=== PATIENT | female | born 1945 ===

== ENCOUNTER 2017-10-14 22:41 | Emergency (ER) | payer MEDICARE ==
[2017-10-14 22:41] VITALS: BMI 25.9
[2017-10-14 22:59] VITALS: BP 144/78; PULSE 90; RESP 16; TEMP 98.3; O2SAT 99
--- NOTE | 2017-10-14 23:46 | ED PDOC ---
HPI: General Adult Time Seen by Provider: 10/14/17 23:05 Chief Complaint (Nursing): Upper Extremity Problem/Injury History Per: Patient Additional Complaint(s): Pt. states earlier today she slipped and fell injuring her L wrist. States >10 years ago she had a pin placed on the R wrist due to a fracture. Denies numbness , tingling, other injury, head injury. Past Medical History Reviewed: Historical Data, Nursing Documentation, Vital Signs Vital Signs: Last Vital Signs Temp 98.3 F 10/14/17 22:58 Pulse 90 10/14/17 22:58 Resp 16 10/14/17 22:58 BP 144/78 10/14/17 22:58 Pulse Ox 99 10/14/17 23:49 - Medical History PMH: Fractures (LEFT WRIST), HTN, Hypercholesterolemia, Osteoporosis Denies: Chronic Kidney Disease - Family History Family History: States: No Known Family Hx - Home Medications Home Medications: Ambulatory Orders Medication Instructions Recorded Alendronate Sodium [Fosamax] 1 tab PO QWK 05/25/16 Glimepiride [Amaryl] 1 tab PO DAILY 05/25/16 Losartan/Hydrochlorothiazide 1 tab PO DAILY 05/25/16 [Hyzaar 100-25 Tablet] Metformin HCl 1 tab PO DAILY 05/25/16 Simvastatin 1 tab PO HS 05/25/16 - Allergies Allergies/Adverse Reactions: Allergies Allergy/AdvReac Type Severity Reaction Status Date / Time No Known Allergies Allergy Verified 05/25/16 10:17 Review of Systems ROS Statement: Except As Marked, All Systems Reviewed And Found Negative Physical Exam - Physical Exam Appears: Positive for: Well, Non-toxic, No Acute Distress Skin: Positive for: Normal Color, Warm. Negative for: Rash Pulses-Radial (L): 2+ Pulses-Radial (R): 2+ Extremity: Positive for: Capillary Refill (< 2 seconds of L hand), Other (L wrist with moderate swelling and tenderness on dorsal wrist; ) Neurologic/Psych: Positive for: Alert, Oriented - ECG O2 Sat by Pulse Oximetry: 99 - Progress ED Course And Treament: Tylenol PO ordered. R wrist x-ray: minimally displaced distal radius fx; pin in place in carpal bone Wrist immobilized in orthoglass reverse sugar tong splint applied by PA. Post neuro exam WNL; cap refill < 2 seconds. Advised to f/u michael Blair impression printer. Also told to f/u with Dr. Ashley ( PMD) if unable to f/u with ortho. Disposition - Clinical Impression Clinical Impression: Fracture of wrist - Patient ED Disposition Is Patient to be Admitted: No - Disposition Referrals: Bishop Hall MD [Medical Doctor] - [facility] [Outside] Disposition: Routine/Home Disposition Time: 00:10 Condition: STABLE Additional Instructions: Take Tylenol at home for pain. Follow up with ortho for further evaluation. Instructions: Wrist Fracture in Adults (ED), Splint Care (ED) Forms: [employer] (Sammarinese) Print Language: UGANDAN
--- NOTE | 2017-10-15 09:18 | RAD ---
PROCEDURE: Left Wrist Radiographs. HISTORY: trauma COMPARISON: None. FINDINGS: BONES: Patient status post open reduction internal fixation of navicular fracture which grossly appears healed at this time. There is no interval callus fracture of the distal left radius which is impacted with mild dorsal distraction and angulation. Ulna appears intact. No subluxation or dislocation identified. JOINTS: As above SOFT TISSUES: Moderate soft tissue edema surrounds fracture site. OTHER FINDINGS: None. IMPRESSION: Impacted Colles fracture distal left radius as discussed above. No dislocation. Status ORIF navicular fracture apparently healed at this time.
== END 2017-10-15 01:27 | disposition home or self-care (01) ==
LOC: H.ER 22:41
DX: S62.102A Fracture of unspecified carpal bone, left wrist, initial encounter for closed fracture (principal); W19.XXXA Unspecified fall, initial encounter; I10 Essential (primary) hypertension; E78.00 Pure hypercholesterolemia, unspecified; M81.0 Age-related osteoporosis without current pathological fracture